=== PATIENT | male | born 1985 | race Caucasian/White ===

== ENCOUNTER 2017-11-01 12:06 | Emergency (ER) | payer OTHER ==
[2017-11-01] MEDS ORDERED: Promethazine HCl 25 MG/ML VIAL ONE (12:39)
[2017-11-01] MEDS ORDERED: Morphine 10 MG/ML VIAL ONE (12:39)
--- NOTE | 2017-11-01 14:51 | CT ---
CT OF THE LUMBAR SPINE: Date: 11/01/17 COMPARISON: None. HISTORY: Pain following lifting a heavy object. TECHNIQUE: Serial axial CT imaging at 2 mm intervals through the lumbar spine without contrast. Coronal and sagi ttal reformatted imaging obtained. FINDINGS: Evaluation for central canal and/or neural foraminal stenosis is limited on routine CT. The nonosseou s structures appear grossly unremarkable. There are mild degenerative changes at the level of the sacroiliac joint on the left. There is no fracture. Lumbar vertebral body height and alignment appears within normal limits. T12-L1: No central canal or neural foraminal stenosis. L1-2: No osseous cause of significant central canal or neural foraminal stenosis. L2-3: No osseous cause of significant central canal or neural foraminal stenosis. L3-4: No osseous cause of significant central canal or neural foraminal stenosis. L4-5: There is a disc bulge present with at least mild central canal stenosis. There is mild bilateral neur al foraminal stenosis on the basis of mild facet hypertrophy and disc bulge. L5-S1: No osseous cause of significant central canal or neural foraminal stenosis. IMPRESSION: 1. No acute fracture or evidence of dislocation. 2. Degenerative disc disease at the L4-5 level as detailed above. If there are radicular symptoms, a follow-up lumbar spine MRI is suggested. POS: [facility]
--- NOTE | 2017-11-01 14:54 | CT ---
CT OF THE THORACIC SPINE: DATE: 11/01/17. COMPARISON: None. HISTORY: Trauma, pain, heard a pop in the back following lifting a heavy object. TECHNIQUE: Serial axial CT imaging at 2 mm intervals from the lower cervical spine through the upper lumbar spin e without contrast. Coronal and sagittal reformatted imaging obtained. FINDINGS: The imaged lung parenchyma is grossly unremarkable. Evaluation for central canal and/or neural foraminal stenosis is limited on routine CT. There is no osseous cause of significant central canal or neural foraminal stenosis. Thoracic vertebral body hei ght and alignment is within normal limits. No acute fracture or evidence of dislocation. IMPRESSION: No acute findings. POS: [facility]
== END 2017-11-01 14:43 | disposition home or self-care (01) ==
LOC: SCSER 12:06
DX: S39.012A Strain of muscle, fascia and tendon of lower back, initial encounter (principal); F43.10 Post-traumatic stress disorder, unspecified; F17.210 Nicotine dependence, cigarettes, uncomplicated; X50.0XXA Overexertion from strenuous movement or load, initial encounter
CPT/HCPCS: 72128; 72131; 96372; J2270; J2550

== ENCOUNTER 2017-11-13 15:46 | Outpatient (CLI) | payer OTHER | END 2017-11-13 15:47 | disposition home or self-care (01) | LOC: BICMRI 15:46 | PROVIDERS: ATTEND Physician Assistant | DX: M51.26 Other intervertebral disc displacement, lumbar region (principal); M47.896 Other spondylosis, lumbar region | CPT/HCPCS: 72148 ==